=== PATIENT | female | born 1965 | race African-American/Black ===

== ENCOUNTER 2018-09-23 09:51 | Emergency (ER) | payer MEDICAID ==
[~2018-09-23] VITALS: Ht 170.2 cm; Wt 95.0 kg
[~2018-09-23 09:51] MED LIST: ALBUTEROL INHALER INH; ASPRIN PO; ATROVENT INHALER INH; BP MEDS; IBUP-1008 PO; TRAM50TA94 PO
[2018-09-23] MEDS ORDERED: IBUPROFEN 600MG TABLET PO ONE (11:30)
[2018-09-23] MEDS ORDERED: TRAMADOL 50MG TABLET PO ONE (11:30)
[2018-09-23 12:39] LABS: ETHANOL BLOOD < 10 mg/dL
[2018-09-23 18:24] VITALS: BP 162/98
== END 2018-09-23 18:49 | disposition home or self-care (01) ==
LOC: ER 09:59
DX: F41.1 Generalized anxiety disorder (principal); R07.89 Other chest pain; F12.10 Cannabis abuse, uncomplicated; F14.10 Cocaine abuse, uncomplicated; J45.909 Unspecified asthma, uncomplicated; I10 Essential (primary) hypertension; F17.200 Nicotine dependence, unspecified, uncomplicated
CPT/HCPCS: 36415; 81025; 84484; 93005; 99284; G0482

== ENCOUNTER 2024-02-24 14:26 | Emergency (ER) | payer MEDICAID ==
[~2024-02-24] VITALS: Ht 172.7 cm; Wt 90.0 kg
[2024-02-24 14:29] VITALS: BP 192/110; RESP 20; TEMP 98.6; O2SAT 97
[2024-02-24 14:31] VITALS: PULSE 80
[2024-02-24 15:02] LABS: BASOPHILS % 0.7 % (0.0-2.0); DIFFERENTIAL COMMENT 0; EOSINOPHILS % 1.6 % (0.0-5.0); HEMATOCRIT. 43.5 % (36.0-48.0); HEMOGLOBIN. 14.1 g/dL (12.0-16.0); LYMPHOCYTES % 42.3 % (20.0-50.0); MEAN CORPUSCULAR HEMOGLOBIN 28.1 pg (28.0-32.0); MEAN CORPUSCULAR HGB CONC 32.4 g/dL (31.0-37.0); MEAN CORPUSCULAR VOLUME 86.6 fL (81.0-99.0); MEAN PLATELET VOLUME 9.2 fl (7.4-10.4); MONOCYTES % 9.6 % (2.0-8.0); NEUTROPHILS % 45.8 % (40.0-76.0); PLATELET 249 x1000/uL (130-400); RED BLOOD CELL COUNT 5.03 mill/uL (4.2-5.4); RED CELL DISTRIBUTION WIDTH 14.4 % (11.6-14.6); WHITE BLOOD COUNT 7.7 x1000/uL (4.5-11.0)
[2024-02-24 15:05] LABS: CHLORIDE 109 mEq/L (98-107); POTASSIUM 3.9 mEq/L (3.5-5.1); SODIUM 138 mEq/L (136-145)
[2024-02-24 15:06] LABS: CARBON DIOXIDE 24 mEq/L (21-32)
[2024-02-24 15:07] LABS: CALCIUM 9.9 mg/dL (8.7-10.4)
[2024-02-24 15:11] LABS: CREATININE 0.8 mg/dL (0.6-1.0); GLUCOSE 99 mg/dL (70-105)
[2024-02-24 15:12] LABS: UREA NITROGEN BLOOD 15 mg/dL (9-23)
[2024-02-24 15:13] LABS: TROPONIN I HIGH SENSITIVITY 12 ng/L (3.0-34)
[2024-02-24 15:22] LABS: ETHANOL BLOOD < 10 mg/dL (<10)
[2024-02-24 15:57] LABS: CLARITY URINE CLOUDY (CLEAR); COLOR URINE YELLOW (YELLOW); GLUCOSE URINE NEGATIVE (NEGATIVE); KETONES URINE NEGATIVE (NEGATIVE); LEUKOCYTE ESTERASE URINE NEGATIVE (NEGATIVE); NITRITE URINE NEGATIVE (NEGATIVE); OCCULT BLOOD URINE NEGATIVE (NEGATIVE); PROTEIN URINE NEGATIVE (NEGATIVE); SPECIFIC GRAVITY URINE 1.033 (1.005-1.030)
[2024-02-24 16:07] LABS: BACTERIA URINE TRACE; RBC URINE NONE SEEN /hpf (0-2); SQUAMOUS EPITHELIAL CELL URINE 1+ /lpf (RARE/1+); WBC URINE 0-2 /hpf (0-2)
== END 2024-02-24 17:19 | disposition left against medical advice (07) ==
LOC: ER 14:26
DX: R53.1 Weakness (principal); R41.82 Altered mental status, unspecified
CPT/HCPCS: 36415; 80048; 80320; 81003; 82962; 84484; 85025; 93005; 99284; G0480